=== PATIENT | female | born 1970 | race American Indian/Alaskan Native ===

== ENCOUNTER 2025-01-23 13:17 | Inpatient (IN) | payer MEDICAID ==
[~2025-01-23] VITALS: Ht 165.1 cm; Wt 70.0 kg
--- NOTE | 2025-01-23 13:36 | Physician Documentation ---
History of Present Illness ~ Chief Complaint: Abdominal Pain Stated Complaint: ABD PAIN Time Seen by MD: 13:27 HPI 55-year-old female who is brought here by ambulance from [facility]. She is currently there for IV ABX. She has a right PICC line in place for IV antibiotic therapy of Cefazolin two grams IV Q8H for right hip osteomyelitis with stop date of 02/10/25. Also on rifampin 300 mg po BID x 6 weeks. She is s/p right hip irrigation with excisional debridement of deep tissue and bone with wound culture 12/27/24. Hx chronic opioid dependence (fentanyl abuse) for which she is on scheduled methadone 10 mg po TID with prn oxycodone or hydomorphone prn. On Lovenox 40 mg daily for DVT prevention. She notes that she has been experiencing diarrhea, nausea, and abdominal pain. Per notes at [facility], she does also have hx of left corneal ulcer. KUB at [facility] shows suggestion of gallstones. Medication Reconciliation Allergies: Coded Allergies: No Known Allergies (Unverified , 01/23/25) Review of Systems ROS As stated above in the HPI, otherwise all systems are reviewed and negative. Physical Exam Vital Signs: Temperature: 98.3, Source: Oral, Heart Rate: 98, Respiratory Rate: 18, BP: 123/84, Pulse Oximetry: 95, Weight: 70.000 Oxygen Flow Rate: 0 Physical Exam General: Alert, no apparent distress. Older than stated age, chronically ill in appearance. HEENT: PERRL, EOMI, no injection, moist mucous membranes. Chronic opacification left cornea. Neck: Full range of motion. Respiratory: Lungs clear, no respiratory distress. Chest: No accessory muscle use. Cardiovascular: Regular rate and rhythm, no murmurs. Gastrointestinal: Soft, diffusely TTP, nondistended. Bowels sounds present. Extremities: Reduced/painful ROM right hip. Psychiatric: Normal mood and affect. Skin: Normal color, warm and dry. No edema, no ecchymosis. Progress Progress Note 1455: Consultation with EDMD Bonner who affirms plan to administer Zosyn for WBC count of 18.9 in this patient with osteomyelitis and possible cholecystitis with CT pending at this time. Infectious disease Dr. Harrison contacted to consult. 1608: Hospitalist agrees to evaluate patient for admission. Results/Orders Results/Orders Orders - SOMMER VIEIRA CARE COORDINATOR Urinalysis, Cult If Indicated (01/23/25 13:32) Monitor (01/23/25 13:32) Saline Lock (01/23/25 13:32) Nothing By Mouth (01/23/25 Dinner) Ct Abdomen Pelvis (01/23/25 14:55) C Diff Toxin (01/23/25 13:36) Cult Stool (Enteric Pathogens) (01/23/25 13:36) Culture Blood (01/23/25 13:37) Potassium Cl 40meq/1/2ns 520ml ([place] (01/23/25 14:40) Observation Status Start (01/23/25 14:38) Piperacillin/Tazo 4.5gm/100ml (Zosyn 4.5 (01/23/25 14:50) Page Hospitalist (01/23/25 16:04) Completed Orders - SOMMER VIEIRA CARE COORDINATOR Cbc/Diff (01/23/25 13:32) Lipase (01/23/25 13:32) Ondansetron Inj. (Zofran 4mg/2ml Vial) (01/23/25 13:35) Morphine 4mg/Ml Inj. (Morphine Inj.) (01/23/25 13:35) Normal Saline 1000ml (Sodium Chloride 10 (01/23/25 13:35) Ct Abdomen Pelvis (01/23/25 14:55) BMP (01/23/25 13:32) Liver Panel (01/23/25 13:32) Electrocardiogram (01/23/25 13:37) Procalcitonin (01/23/25 13:37) Lacticsepsis (01/23/25 13:37) C-Reactive Protein (01/23/25 13:37) Iohexol 300mg/Ml 100ml Inj. (Omnipaque-3 (01/23/25 14:33) Man Diff (01/23/25 13:58) Medications Received in ER Medications (Trade) Dose Ordered Sig/Axel Route PRN Reason Start Time Stop Time Status Last Admin Dose Admin (Zofran 4mg/2ml vial) 4 mg ONCE ONCE IV 01/23/25 13:35 01/23/25 13:36 DC 01/23/25 15:11 4 MG (morphine inj.) 4 mg ONCE ONCE IV 01/23/25 13:35 01/23/25 13:36 DC 01/23/25 13:45 4 MG (sodium chloride 1000ml IV soln) 1,000 ml ONCE ONCE IVB 01/23/25 13:35 01/23/25 13:36 DC 01/23/25 13:46 1,000 ML Potassium Chloride 520 ml @ 130 mls/hr ONCE ONCE IV 01/23/25 14:40 01/23/25 18:39 01/23/25 15:11 130 MLS/HR Piperacillin/ Tazobactam/ Dextrose 100 ml @ 25 mls/hr NOW STAT IV 01/23/25 14:50 01/23/25 18:49 01/23/25 15:11 25 MLS/HR Vital Signs 01/23/25 01/23/25 01/23/25 01/23/25 13:20 13:35 13:39 14:45 Temp 98.3 Pulse 98 98 89 Resp 18 18 19 B/P (MAP) 123/84 116/77 (90) 135/79 (97) Pulse Ox 95 96 98 O2 Flow Rate 0 0 0 01/23/25 15:49 Pulse 94 Resp 18 B/P (MAP) 122/76 (91) Pulse Ox 97 O2 Flow Rate 0 Laboratory Tests Test 01/23/25 13:58 White Blood Count 18.9 H Red Blood Count 4.43 Hemoglobin 11.9 L Hematocrit 36.5 Mean Corpuscular Volume 82.3 Mean Corpuscular Hemoglobin 26.9 L Mean Corpuscular Hemoglobin Concent 32.6 L Red Cell Distribution Width 20.8 H Platelet Count 337 Mean Platelet Volume 7.4 Neutrophils (%) (Auto) 83.7 H Lymphocytes (%) (Auto) 6.2 L Monocytes (%) (Auto) 9.5 Eosinophils (%) (Auto) 0.4 Basophils (%) (Auto) 0.2 Neutrophils # (Auto) 15.8 H Lymphocytes # (Auto) 1.2 Monocytes # (Auto) 1.8 H Eosinophils # (Auto) 0.1 Basophils # (Auto) 0.0 CBC Comment Differential Total Cells Counted 100 Neutrophils % (Manual) 72.0 Band Neutrophils % 13.0 H Lymphocytes % (Manual) 6.0 L Monocytes % (Manual) 9.0 Toxic Granulation 1+ Toxic Vacuolation Few Platelet Estimate Normal Red Blood Cell Morphology Perf Basophilic Stippling Anisocytosis 3+ Sodium Level 133 L Potassium Level 2.9 *L Chloride Level 99 Carbon Dioxide Level 22.0 L Anion Gap 12 Blood Urea Nitrogen 10 Creatinine 0.73 Estimated GFR/1.73 m2 82 BUN/Creatinine Ratio 13.7 Glucose Level 128 H Lactic Acid Level 0.9 Calcium Level 8.7 Total Bilirubin 0.3 Direct Bilirubin 0.2 Aspartate Amino Transf (AST/SGOT) 19 Alanine Aminotransferase (ALT/SGPT) 8 L Alkaline Phosphatase 116 C-Reactive Protein 8.97 H Total Protein 7.9 Albumin 2.8 L Globulin 5.1 H Albumin/Globulin Ratio 0.5 L Lipase 9 L Procalcitonin 0.09 Chemistry Comments EKG/XRAY/CT/US/VASC/MRI EKG : Additional Comment 1348: EKG interpreted to shows sinus rhythm rate of [address] segment elevation. No ectopy. QTC 435 ms. Medical Decision Making Additional Comments 55-year-old female with a complex medical history who is currently residing at [facility] as she is receiving intravenous antibiotics for right hip osteomyelitis. She presented today to the emergency department due to concerns for abdominal pain, present x3 days. Labs were remarkable for white blood cell count of 18.9 with 13 bands, mild hyponatremia with a sodium of 133, hypokalemia with a potassium of 2.9, markedly elevated CRP at 8.99. Her lactic acid and procalcitonin were unremarkable. The patient was found to have pancolitis per CT scan of the abdomen. She was medicated in the emergency department for pain and also getting a L of normal saline as a bolus and a dose as Zosyn. She is appropriate for admission due to her leukocytosis with bandemia, hypokalemia, and abdominal pain with known carrillo-colitis. C Diff was ordered immediately upon presentation but at time of presentation to hospitalist to [facility] for admission, patient had not yet produced diarrhea stool. Departure Time of Disposition: 16:19 Disposition: 09 ADMITTED INPATIENT Admitted to Inpatient Unit: yes, to hospitalist Impression: Primary Impression: Pancolitis Additional Impressions: Leukocytosis Bandemia Referrals: NO PRIMARY CARE PROVIDER (PCP) Signature Scribe Signature: x Attestation: The note accurately reflects work and decisions made by me.Sommer Graham NP 01/23/25 15:09 SOMMER VIEIRA NP Jan 23, 2025 13:36
[2025-01-23] MEDS: morphine 4 MG/ML inj SYRINge IV ONE (13:45)
[2025-01-23] MEDS: normal saline 1000ML IV soln IVB ONE (13:46)
--- NOTE | 2025-01-23 13:49 | ELECTROCARDIOGRAPH REPORT ---
[facility] Test Date: 2025-01-23 Test Time: 13:48:33 Pat Name: KENDY CARTER Department: [facility] Patient ID: [facility]-[id number] Room: Gender: F Personal Development Coach: : 1970 Requested By: SOMMER VIEIRA Order Number: [id number] Reading MD: Measurements Intervals Bradley Rate: 90 P: 52 OR: 157 QRS: 54 QRSD: 94 T: -6 QT: 355 QTc: 435 Interpretive Statements Sinus rhythm Probable left atrial enlargement Borderline T abnormalities, diffuse leads Please click the below link to view image of tracing.
[2025-01-23 14:15] LABS: MEAN PLATELET VOLUME 7.4 FL (7.4-10.4); RED CELL DISTRIBUTION WIDTH 20.8 % (11.5-14.5)
[2025-01-23 14:30] LABS: CREATININE 0.73 MG/DL (0.40-0.90); TOTAL CARBON DIOXIDE 22.0 MMOL/L (24-32); eCRCL 77 ML/MIN; eGFR 82 ML/MIN
[2025-01-23] MEDS ORDERED: iohexol 300mg/ml 100ml inj. ONE (14:33)
[2025-01-23 15:10] LABS: BANDS% (MANUAL) 13.0 % (0-10); LYMPHOCYTES % (MANUAL) 6.0 % (21-51); MONOCYTES % (MANUAL) 9.0 % (2-12); NEUTROPHILS % (MANUAL) 72.0 % (42-75); PLATELET ESTIMATE NORMAL
[2025-01-23] MEDS: potassium Cl 40MEQ/1/2NS 520ml 520 ML IV ONE (15:11)
[2025-01-23] MEDS: ondansetron/PF 4mg/2ml inj IV ONE (15:11)
[2025-01-23] MEDS: piperacillin/tazo 4.5gm/100ml 100 ML IV STA (15:11)
--- NOTE | 2025-01-23 15:55 | RADIOLOGY REPORT ---
Exam: CT CT ABDOMEN PELVIS W/ IV CONTRAST History: ABD PAIN Comparison Study: None TECHNIQUE: Multidetector CT of the abdomen and pelvis with IV contrast. Axial, coronal and sagittal m ultiplanar reformats were obtained from the axial data set by the technologist. Radiation Dose Information: CT Dose: CTDI volume is 16.96 mGy. Dose-length product is 866.71 mGy*cm FINDINGS: Bibasilar atelectasis. Partially visualized heart is unremarkable. Mild hepatomegaly. 1 cm nonspecific hypodense lesion within the left hepatic lobe adjacent to the fa lciform ligament. Minimal intrahepatic biliary ductal dilatation. Otherwise, liver, spleen, pancre as and adrenal glands unremarkable. Cholelithiasis within [id number] distended gallbladder. No CT evidence of acute cholecystitis. Kidneys, ureters and urinary bladder unremarkable. Status post hysterectomy. Calcifications are noted of the vagina. Phleboliths are noted within the pelvis. Mild wall thickening of the distal esophagus. Limited evaluation of the stomach due to decompressed s meyer. Small bowel loops unremarkable. Appendix is partially visualized with the visualized appendix unremarkable. Without complete visualization of the appendix, can not exclude acute appendicitis. The re is pancolonic wall thickening with minimal adjacent fat stranding. Small amount of liquid stool wi thin the colon. No evidence of intraperitoneal free air or free fluid. No evidence of aortic aneurysm or dissection. No significant atherosclerotic calcification of the aor ta and bilateral iliacs. Shotty mesenteric lymph nodes. Osseous destruction of right hip with erosive changes and sclerosis of the acetabulum and femoral hea d. Superior displacement of the right femur. There is associated heterogeneous soft tissue density w ith bony fragments /calcifications and fluid collection. Largest right lateral hip pocket of fluid c ollection measuring up to 5 x 3.4 x 6.4 cm. Heterogeneous lucent area within the right ischial bone. Right posterolateral lower thoracic wall lipoma measuring up to 4.9 x 2.3 x 4.2 cm IMPRESSION: Pancolitis. Right hip osseous destruction with associated ill-defined soft tissue density Complex fluid collectio n as detailed above. Heterogeneous lytic lesion within the Right ischial bone. Chronic osteomyelitis involving the ischial bone is within the differential. Hepatomegaly. Nonspecific 1 cm hypodense lesion within the left hepatic lobe adjacent to the falcifor m ligament. Mild distal esophageal wall thickening. Correlate for esophagitis. Cholelithiasis without evidence of acute cholecystitis. Additional findings as above.
[2025-01-23] MEDS ORDERED: magnesium sulf-water 4G/100mL 100 ML IV PRN (17:15)
[2025-01-23] MEDS ORDERED: potassium Cl 40MEQ/1/2NS 520ml 520 ML IV PRN (17:15)
[2025-01-23] MEDS ORDERED: mag hydrox/Alum hydrox/simeth 30ml oral suspension PO PRN (17:15)
[2025-01-23] MEDS ORDERED: magnesium Cl slow-release 64mg tablet PO PRN (17:15)
[2025-01-23] MEDS ORDERED: magnesium hydroxide 30ml (MOM) UD suspension PO PRN (17:15)
[2025-01-23] MEDS ORDERED: magnesium sulf-water 2g/50mL 50 ML IV PRN (17:15)
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
[2025-01-23 18:00] VITALS: BP 116/77; PULSE 107; RESP 17; TEMP 98.4; O2SAT 98
[2025-01-23] MEDS: oxyCODONE SR 10mg (sust. release) tab PO SCH (18:44)
[2025-01-23] MEDS: normal saline 1000ml 1,000 ML IV SCH (18:45)
[2025-01-23] MEDS: metroNIDAZOLE-Flagyl 500mg/NS 100 ML IV SCH (18:45)
[2025-01-23 20:00] VITALS: RESP 17; O2SAT 98
[2025-01-23] MEDS: docusate sod 100mg capsule PO SCH (20:00)
[2025-01-23] MEDS ORDERED: oxyCODONE SR 10mg (sust. release) tab PO PRN (20:00)
[2025-01-23] MEDS ORDERED: oxyCODONE SR 10mg (sust. release) tab PO SCH ×2 (20:00)
--- NOTE | 2025-01-23 20:23 | RADIOLOGY REPORT ---
CHEST RADIOGRAPH Indication: verify PICC placement Technique: Single frontal view of the chest was obtained COMPARISON: None FINDINGS: Lines and Tubes: Right PICC in satisfactory position Lungs: Congestion Pleura: No effusion. No pneumothorax. Cardiomediastinal contours: Unremarkable Bones: Unremarkable IMPRESSION: Right PICC in satisfactory position overlying the superior vena cava.
[2025-01-23] MEDS: K and/or MAG REPLACEMENT MC SCH (20:43)
[2025-01-23] MEDS: vancomycin 125 MG/5 ML UD oral SOLN.RECON 5mL oral syringe (FIRVANQ) PO SCH (20:45)
[2025-01-23 22:00] VITALS: BP 112/74; PULSE 96; RESP 14; TEMP 98.3; O2SAT 96
[2025-01-23] MEDS: potassium Cl 20 mEq SR tablet PO PRN (22:30)
[2025-01-23] MEDS: ondansetron/PF 4mg/2ml inj IV PRN (22:46)
[2025-01-24] MEDS: methadone 10mg tablet PO SCH (00:34)
[2025-01-24 05:39] LABS: MEAN PLATELET VOLUME 7.9 FL (7.4-10.4); RED CELL DISTRIBUTION WIDTH 21.3 % (11.5-14.5)
[2025-01-24 06:00] VITALS: BP 124/82; PULSE 89; RESP 18; TEMP 97.8; O2SAT 97
[2025-01-24 06:07] LABS: CREATININE 0.57 MG/DL (0.40-0.90); TOTAL CARBON DIOXIDE 20.6 MMOL/L (24-32); eCRCL 98 ML/MIN; eGFR > 90 ML/MIN
[2025-01-24] MEDS: lactobacillus rhamnosus 10,000 MMU CELLS/CAPSULE PO SCH (07:36)
[2025-01-24] MEDS: enoxaparin 40mg/0.4ml syringe SUBCUT SCH (07:43)
[2025-01-24 07:45] VITALS: RESP 16
[2025-01-24 09:01] LABS: C DIFFICILE TOXINS A&B POSITIVE (Neg)
[2025-01-24 09:02] LABS: C DIFF ANTIGEN POSITIVE (NEGATIVE); C DIFF SPECIMEN=DIARRHEA? ACCEPTABLE
[2025-01-24 10:00] VITALS: BP 127/85; PULSE 93; RESP 16; TEMP 98; O2SAT 96
--- NOTE | 2025-01-24 12:01 | PROGRESS NOTE- Residence ---
Progress Note - Resident Providers to CC Resident Creating Document: JOSETTE DUARTE RES CC: LAW ANDERSEN MD ~ Central Line/PICC Necessity: Irritate solution deliver Antibiotic Timeout Antibiotic Ordered?: Yes If Yes, Indications: CDI Subjective Patient is seen today morning. Still having diarrhea. And abdominal pain. Stool for C diff is positive Objective Vital Signs Date Time Temp Pulse Resp B/P (MAP) Pulse Ox O2 Delivery O2 Flow Rate FiO2 01/24/25 07:45 16 Room Air 01/24/25 06:00 97.8 89 124/82 (96) 97 01/23/25 22:00 0.0 Result Diagram: 01/24/2542301/24/25423 General: Adult female, AAO x4, not in apparent distress Face; scars present over for her forehead Head: Normocephalic with an atraumatic Eyes: Pupils- 3mm, reacting to light, conjunctiva- anicteric Nose and throat: No polyps, septum- normal, no mucosal ulcers Neck: Supple, no lymphadenopathy, no carotid bruit Respiratory: No use of accessory muscles of respiration, Bilateral normal vesiscular breath sounds heard. No wheeze, rhochi or creps Cardiac: S1-S2 heard, rythm regular, no gallop/murmur Abdomen: non distended, mild diffuse tenderness, no organomegaly, bowel sounds- heard Extremities: no clubbing, no pedal edema, peripheral pulses- 2+ Skin: warm and dry, no rash, no purpura Neuro: No focal deficit, gross cranial nerve exam- normal Assessment Assessment 55-year-old female with history of right hip prosthetic infections, s/p prosthesis removal in 2022, right hip osteomyelitis on IV antibiotics, fentanyl use disorder, who has been residing in rehab for the past three weeks came for evaluation of abdominal pain and diarrhea Plan Plan Clostridium Difficile Infection sepsis-poa -wbc remained at 18 -CT abdomen showed diffuse pancolitis with cholelithiasis without any cholecystitis -continue p.o. vancomycin 120 mg q.6, started on 01/23 for 2 weeks -contact isolation for C diff -NS @ 100 cc/hr Right hip osteomyelitis ct showed- Osseous destruction of right hip with erosive changes and sclerosis of the acetabulum and femoral head. Superior displacement of the right femur. There is associated heterogeneous soft tissue density with bony fragments /calcifications and fluid collection. Largest right lateral hip pocket of fluid collection measuring up to 5 x 3.4 x 6.4 cm. Heterogeneous lucent area within the right ischial bone. Right posterolateral lower thoracic wall lipoma measuring up to 4.9 x 2.3 x 4.2 cm -patient is on IV cefazolin 2 g q.8h and rifampin 300 mg b.i.d. which has to be continued till 02/09/2025 -hold cefazolin for now and continue rifampin -pain management with p.o. oxy SR 10 mg q.12 p.r.n. -Dr. Harrison ID was consulted in the ER, appreciate recs -physical therapy Fentanyl use disorder -currently on methadone 10 mg q.8h as per records from [facility], pharmacy will also confirm once and then start -SUN consulted for resources Hypokalemia Potassium 3.1 -suspect secondary to diarrhea -replacement per protocol Cholelithiasis -CT abdomen showed no evidence of cholecystitis -monitor for now Code Status: Full code Line/tube: PICC line DVT prophylaxis: Lovenox subQ Nutrition: Regular diet PT: Yes Prognosis: Guarded Disposition: Continue care in surgical floor Josette Duarte MD IM PGY-3 resident Date of Service: Jan 24, 2025 Billing Provider: LAW ANDERSEN MD,JOSETTE, RES Jan 24, 2025 12:01
[2025-01-24 18:00] VITALS: BP 133/82; PULSE 93; RESP 15; TEMP 98.6; O2SAT 98
[2025-01-24 22:00] VITALS: BP 133/86; PULSE 94; RESP 18; TEMP 96.8; O2SAT 98
[2025-01-24] MEDS ORDERED: OXYC-658 PO (23:05)
[2025-01-24] MEDS ORDERED: CEFA2PLA9 IV (23:05)
[2025-01-24] MEDS ORDERED: ACET-2119 PO (23:05)
[2025-01-24] MEDS ORDERED: ENOX40SY7 SUBCUT (23:05)
[2025-01-24] MEDS ORDERED: FERR325T28 PO (23:05)
[2025-01-24] MEDS ORDERED: VITC500T PO (23:05)
[2025-01-24] MEDS ORDERED: LORA-268 PO (23:05)
[2025-01-24] MEDS ORDERED: DOCU100E RC (23:05)
[2025-01-24] MEDS ORDERED: HYDR1LIQ3 IV ×2 (23:05)
[2025-01-24] MEDS ORDERED: CALC500T33 PO (23:05)
[2025-01-24] MEDS ORDERED: ONDA-243 PO (23:05)
[2025-01-24] MEDS ORDERED: POLY17PO26 PO (23:05)
[2025-01-24] MEDS ORDERED: MELA3CAP2 PO (23:05)
[2025-01-24] MEDS ORDERED: OXYC10TA47 PO (23:05)
[2025-01-24] MEDS ORDERED: METH-603 PO (23:05)
[2025-01-24] MEDS ORDERED: ALB0.5UD NEB (23:05)
[2025-01-24] MEDS ORDERED: PANT40SU2 PO (23:05)
[2025-01-24] MEDS ORDERED: LACT1CAP65 PO (23:05)
[2025-01-24] MEDS ORDERED: NICO-687 TOP (23:05)
[2025-01-25] MEDS ORDERED: oxyCODONE IR 5mg (immed. release) tablet PO PRN (01:15)
[2025-01-25] MEDS ORDERED: calcium carbonate 500mg chew tablet PO PRN (01:20)
[2025-01-25] MEDS ORDERED: albuterol 2.5 MG/3 ML nebule NEB PRN (01:20)
[2025-01-25 06:08] LABS: CREATININE 0.54 MG/DL (0.40-0.90); TOTAL CARBON DIOXIDE 19.2 MMOL/L (24-32); eCRCL 103 ML/MIN; eGFR > 90 ML/MIN
[2025-01-25 06:10] LABS: MEAN PLATELET VOLUME 7.5 FL (7.4-10.4); RED CELL DISTRIBUTION WIDTH 21.3 % (11.5-14.5)
[2025-01-25 06:30] LABS: EOSINOPHILS % (MANUAL) 1.0 % (0-6); LYMPHOCYTES % (MANUAL) 4.0 % (21-51); MONOCYTES % (MANUAL) 4.0 % (2-12); NEUTROPHILS % (MANUAL) 91.0 % (42-75); PLATELET ESTIMATE NORMAL
[2025-01-25 06:47] VITALS: BP 116/70; PULSE 86; RESP 20; TEMP 96; O2SAT 99
[2025-01-25] MEDS: HYDROmorphone inj. 0.5 MG/0.5 ML DISP.SYRIN IV SCH (08:00)
[2025-01-25] MEDS ORDERED: methadone 10mg tablet PO SCH (08:00)
[2025-01-25] MEDS: nicotine 21mg patch - 24 hr TD SCH (08:00)
[2025-01-25] MEDS: pantoprazole 40mg Tablet.DR PO SCH (08:33)
[2025-01-25] MEDS: potassium Cl 20 mEq SR tablet PO PRN (08:33)
[2025-01-25 11:13] VITALS: BP 120/71; PULSE 91; RESP 18; TEMP 98.1; O2SAT 98
[2025-01-25] MEDS: oxyCODONE IR 5mg (immed. release) tablet PO PRN (15:22)
--- NOTE | 2025-01-25 17:24 | PROGRESS NOTE- Residence ---
Progress Note - Resident Providers to CC Resident Creating Document: JERAD JONES RES ~ Antibiotic Timeout Antibiotic Ordered?: Yes Subjective Patient is seen today morning. She had 1-2 episodes of diarrhea. C diff positive. She had mild abdominal pain on palpation. Objective Vital Signs Date Time Temp Pulse Resp B/P (MAP) Pulse Ox O2 Delivery O2 Flow Rate FiO2 01/25/25 15:22 16 01/25/25 11:13 98.1 91 120/71 (87) 98 Room Air 01/25/25 08:20 0.0 General: Adult female, AAO x4, not in apparent distress Face; scars present over for her forehead Head: Normocephalic with an atraumatic Eyes: Pupils- 3mm, reacting to light, conjunctiva- anicteric Nose and throat: No polyps, septum- normal, no mucosal ulcers Neck: Supple, no lymphadenopathy, no carotid bruit Respiratory: No use of accessory muscles of respiration, Bilateral normal vesiscular breath sounds heard. No wheeze, rhochi or creps Cardiac: S1-S2 heard, rythm regular, no gallop/murmur Abdomen: non distended, mild diffuse tenderness, no organomegaly, bowel sounds- heard Extremities: no clubbing, no pedal edema, peripheral pulses- 2+ Skin: warm and dry, no rash, no purpura Neuro: No focal deficit, gross cranial nerve exam- normal Result Diagram: 01/25/25 0600 01/25/25 0445 Assessment Assessment 55-year-old female with history of right hip prosthetic infections, s/p prosthesis removal in 2022, right hip osteomyelitis on IV antibiotics, fentanyl use disorder, who has been residing in rehab for the past three weeks came for evaluation of abdominal pain and diarrhea Plan Plan Clostridium Difficile Infection sepsis-poa -wbc remained at 18 -CT abdomen showed diffuse pancolitis with cholelithiasis without any cholecystitis -continue p.o. vancomycin 120 mg q.6, started on 01/23 for 2 weeks -contact isolation for C diff -NS @ 100 cc/hr Culturel has been ordered for the gut benefit of the patient Right hip osteomyelitis ct showed- Osseous destruction of right hip with erosive changes and sclerosis of the acetabulum and femoral head. Superior displacement of the right femur. There is associated heterogeneous soft tissue density with bony fragments /calcifications and fluid collection. Largest right lateral hip pocket of fluid collection measuring up to 5 x 3.4 x 6.4 cm. Heterogeneous lucent area within the right ischial bone. Right posterolateral lower thoracic wall lipoma measuring up to 4.9 x 2.3 x 4.2 cm DC rifampin today -pain management with p.o. oxy SR 10 mg q.12 p.r.n. -Dr. Harrison ID consulted. ID will evaluate the patient tomorrow Fentanyl use disorder -currently on methadone 10 mg q.8h as per records from [facility], pharmacy will also confirm once and then start -SUN consulted for resources Hypokalemia Potassium 3.3 -suspect secondary to diarrhea -replacement per protocol to be continued Cholelithiasis -CT abdomen showed no evidence of cholecystitis -monitor for now Code Status: Full code Line/tube: PICC line DVT prophylaxis: Lovenox subQ Nutrition: Regular diet PT: Yes Prognosis: Guarded Disposition: Continue care in surgical floor Jerad Jones MD IM PGY-1 resident Date of Service: Jan 25, 2025 Billing Provider: LAW ANDERSEN MD, JAHNAVI, RES Jan 25, 2025 17:24
[2025-01-25 18:00] VITALS: BP 119/74; PULSE 95; RESP 18; TEMP 98.1; O2SAT 96
[2025-01-25] MEDS: lactobacillus rhamnosus 10,000 MMU CELLS/CAPSULE PO SCH (19:51)
[2025-01-25 20:00] VITALS: RESP 18; O2SAT 96
[2025-01-25 22:00] VITALS: BP 117/70; PULSE 77; RESP 13; TEMP 97.8; O2SAT 97
[2025-01-25] MEDS: ondansetron/PF 4mg/2ml inj IV PRN (22:10)
[2025-01-26 05:33] LABS: CREATININE 0.54 MG/DL (0.40-0.90); TOTAL CARBON DIOXIDE 15.8 MMOL/L (24-32); eCRCL 103 ML/MIN; eGFR > 90 ML/MIN
[2025-01-26 06:22] VITALS: BP 120/70; PULSE 83; RESP 16; TEMP 98.3; O2SAT 97
[2025-01-26 07:30] LABS: MEAN PLATELET VOLUME 7.5 FL (7.4-10.4); RED CELL DISTRIBUTION WIDTH 21.8 % (11.5-14.5)
[2025-01-26] MEDS: dextrose 50%-water 50ml dispensing syringe IV ONE (08:24)
[2025-01-26 08:39] LABS: BANDS% (MANUAL) 4.0 % (0-10); LYMPHOCYTES % (MANUAL) 6.0 % (21-51); MONOCYTES % (MANUAL) 4.0 % (2-12); NEUTROPHILS % (MANUAL) 86.0 % (42-75); PLATELET ESTIMATE NORMAL
[2025-01-26 11:01] VITALS: BP 102/62; PULSE 83; RESP 16; TEMP 97.4; O2SAT 96
--- NOTE | 2025-01-26 11:42 | CONSULTATION REPORT - RESIDENT ---
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 Patient came transferred from [facility] due to abdominal pain and diarrhea. Patient has a longstanding history of right hip osteomyelitis, she initially required a right hip replacement in 2003, then after hardware infection patient required debridements and hardware removal at [facility]/[place]. Most recently, patient was admitted to [facility] three weeks ago for a six week course of IV rifampin and cefazolin. She reports that since starting antibiotics she has been presenting intermittent watery diarrhea. Three days ago, she reported that the diarrhea increased in frequency, and it was accompanied by colicky abdominal pain, diffuse, constant, 8-9/10 in intensity. She denies hematochezia, melena or hematemesis. She also denies fevers or chills. On admission, testing for C diff was positive. P.o. vancomycin 125 mg q.6 was started, and Cefazolin was held. Rifampin was initially continued, then stopped yesterday. Today, patient reports to be feeling better with improved abdominal pain and decreased in frequency of diarrhea. She has remained afebrile. According to patient, plan for the hip is to get another hip replacement after the infection has resolved. Allergies: Coded Allergies: No Known Allergies (Unverified , 01/23/25) Home Medications Home Medications Active Reported Oxycodone Hcl 10 Mg Tablet 2 Tab PO Q4H PRN Oxycodone IR* (Oxycodone HCl) 5 Mg Tablet 10 Mg PO Q4H PRN Ondansetron Odt (Ondansetron HCl) 4 Mg Tab.rapdis 1 Tab PO Q6H PRN PRN Melatonin 3 Mg Capsule 1 Cap PO HS PRN Ativan (Lorazepam) 0.5 Mg Tablet 1 Tab PO Q12H PRN PRN Dilaudid (Hydromorphone HCl) 1 Mg/Ml Liquid 0.5 Mg IV BID Dilaudid (Hydromorphone HCl) 1 Mg/Ml Liquid 0.5 Mg IV Q6H PRN Docusol Kids (Docusate Sodium) 100 Mg/5 Ml Enema 283 Mg RC PRN PRN Tums (Calcium Carbonate) 500 Mg Tab.chew 2 Tab PO BID PRN Proventil Nebs* (Albuterol) 2.5 Mg/0.5 Ml Vial.neb 2.5 Mg NEB Q4H PRN Tylenol (Acetaminophen) 325 Mg Tablet 650 Mg PO Q4H PRN Cefazolin 2 G/100 ml-0.9% NaCl (Cefazolin Sodium in 0.9 % NaCl) 2 Gram/100 Ml Plast..bag 2 Gm IV Q8H Gavilax (Polyethylene Glycol 3350) 17 Gram Powd.pack 17 Gm PO DAILY Protonix (Pantoprazole Sodium) 40 Mg Suspdr.pkt 40 Mg PO DAILY Habitrol 21 MG Patch* (Nicotine) 1 Each Patch.td24 1 Patch TOP DAILY 28 Days Dolophine* (Methadone HCl) 10 Mg Tablet 1 Tab PO Q8H Probiotic (Lactobacillus Acidophilus) 10 Billion Cell Capsule 1 Each PO BID Ferrous Sulfate* (Ferrous Sulfate) 325 Mg Tablet 1 Tab PO DAILY Lovenox (Enoxaparin Sodium) 40 Mg/0.4 Ml Disp.syrin 0.4 Ml SUBCUT DAILY Vitamin C* (Ascorbic Acid) 500 Mg Tablet 1 Tab PO DAILY Past Medical History Past Medical History Chronic osteomyelitis of right hip 2/2 hardware infection Fentanyl use disorder Left eye blindness 2/2 corneal ulcer Cholelithiasis Past Surgical History Surgical History Comment Right hip replacement Right hip hardware removal Right hip debridement x3 Right knee replacement Past Social History Social History Comment Heavy smoker, has decreased to 2 cigarettes a day. Last cigarette 3 weeks ago Denies alcohol intake History of fentanyl abuse, on methadone Lives with her son Currently uses a wheelchair/crutches ROS ROS All systems were reviewed and found negative except for pertinent positives mentioned in HPI Exam Vitals: Vital Signs Date Time Temp Pulse Resp B/P (MAP) Pulse Ox O2 Delivery O2 Flow Rate FiO2 01/26/25 11:01 97.4 83 16 102/62 (75) 96 01/26/25 08:27 Room Air 0.0 General: General: awake, alert oriented to place, time, and person HEENT: No pallor present, no icterus, moist mucous membranes Neck: No masses and tenderness Resp: Unlabored. Lungs clear to auscultation bilaterally. Chest: Normal expansion Cardiovascular: Regular Rate and rhythm, normal S1 and S2 without murmur, rub or gallop Abdomen: Soft and diffusely tender to palpation, no organomegaly, no guarding and rigidity, bowel sounds present Neuro: No focal weakness in the upper and lower limb muscles, power of the muscles 5/5 bilateral upper and lower extremities, normal reflexes bilaterally. Cranial nerves intact Extremities: She has a healing wound in the right hip, sterile strips present. No drainage, no erythema or edema. No cyanosis or clubbing Skin: Warm and Dry. No lesions Psych: Normal affect. Cooperative with the care Diagnostic Data Last Recorded Lab Results: 01/26/25 0649 01/26/25 0500 Additional Plan Infectious disease consultation note: C-diff colitis Chronic MSSA osteomyelitis of right hip 2/2 hardware infection S/p right hip hardware removal at [facility] Patient is clinically better with decreased diarrhea and abdominal pain White count is still significantly elevated Blood cultures from 01/23/[address] abdomen and pelvis show: Right hip osseous destruction with associated ill- defined soft tissue density Complex fluid collection as detailed above. Heterogeneous lytic lesion within the Right ischial bone. Chronic osteomyelitis involving the ischial bone is within the differential. Agree with stopping rifampin and cefazolin Will continue p.o. vancomycin 125 mg q.6 Will start IV vancomycin to cover the right hip with stop date of 02/09 as initially planned Continue monitoring CBC Patient is to follow up at [facility] once hip infection has cleared. Although, considering the amount of bone destruction in the area this may not be possible History of fentanyl abuse Patient is currently on methadone Since was on rifampin, which decreases methadone concentration, consider decreasing methadone dose now that the patient is off rifampin. Above plan discussed in detail with Dr. Galarza Other comorbidities include: Hypoglycemia Cholelithiasis Hyponatremia, resolved Hypokalemia, resolved Management per hospitalist team Disposition: Continue care in surgical floor. Continue p.o. vancomycin. Start IV vancomycin Santosh Gomes MD Internal Medicine Resident PGY-2 Date of Service: Jan 26, 2025 Billing Provider: STEPHANIE GALARZA MD, LEONARDO LUIS Jan 26, 2025 11:42 STEPHANIE GALARZA MD Jan 26, 2025 23:39
[2025-01-26] MEDS: VANCOMYCIN 1.75GM/WATER FOR INJ (PEG) 350 ML IVPB IV ONE (13:07)
[2025-01-26 13:10] VITALS: PULSE 83; RESP 16; O2SAT 96
[2025-01-26] MEDS: HYDROmorphone inj. 0.5 MG/0.5 ML DISP.SYRIN IV PRN (15:12)
[2025-01-26 18:00] VITALS: BP 123/81; PULSE 76; RESP 16; TEMP 97.5; O2SAT 98
--- NOTE | 2025-01-26 18:49 | PROGRESS NOTE- Residence ---
Progress Note - Resident Providers to CC Resident Creating Document: JOSETTE DUARTE RES CC: LAW ANDERSEN MD ~ Central Line/PICC still needed: N\A Antibiotic Timeout Antibiotic Ordered?: Yes If Yes, Indications: cdi Subjective Patient is seen today morning. feeling slightly better, still having loose bm although frequency is down to 2-3 for the past 24 hrs Hab bg of 55 this morning and ivf changed to d5ns from ns Objective Vital Signs Date Time Temp Pulse Resp B/P (MAP) Pulse Ox O2 Delivery O2 Flow Rate FiO2 01/26/25 16:43 16 01/26/25 13:10 83 96 Room Air* 0 21 01/26/25 11:01 97.4 102/62 (75) Result Diagram: 01/26/25 0649 01/26/25 0500 General: Adult female, AAO x4, not in apparent distress Face; scars present over for her forehead Head: Normocephalic with an atraumatic Eyes: Pupils- 3mm, reacting to light, conjunctiva- anicteric Nose and throat: No polyps, septum- normal, no mucosal ulcers Neck: Supple, no lymphadenopathy, no carotid bruit Respiratory: No use of accessory muscles of respiration, Bilateral normal vesiscular breath sounds heard. No wheeze, rhochi or creps Cardiac: S1-S2 heard, rythm regular, no gallop/murmur Abdomen: non distended, mild diffuse tenderness, no organomegaly, bowel sounds- heard Extremities: no clubbing, no pedal edema, peripheral pulses- 2+ Skin: warm and dry, no rash, no purpura Neuro: No focal deficit, gross cranial nerve exam- normal Assessment Assessment 55-year-old female with history of right hip prosthetic infections, s/p prosthesis removal in 2022, right hip osteomyelitis on IV antibiotics, fentanyl use disorder, who has been residing in rehab for the past three weeks came for evaluation of abdominal pain and diarrhea Plan Plan Clostridium Difficile Infection sepsis-poa -wbc 25>>25>>18 -CT abdomen showed diffuse pancolitis with cholelithiasis without any cholecystitis -continue p.o. vancomycin 120 mg q.6, started on 01/23 for 2 weeks -contact isolation for C diff -D5NS @ 100 cc/hr Right hip osteomyelitis ct showed- Osseous destruction of right hip with erosive changes and sclerosis of the acetabulum and femoral head. Superior displacement of the right femur. There is associated heterogeneous soft tissue density with bony fragments /calcifications and fluid collection. Largest right lateral hip pocket of fluid collection measuring up to 5 x 3.4 x 6.4 cm. Heterogeneous lucent area within the right ischial bone. Right posterolateral lower thoracic wall lipoma measuring up to 4.9 x 2.3 x 4.2 cm -patient is on IV cefazolin 2 g q.8h and rifampin 300 mg b.i.d. which has to be continued till 02/09/2025 -hold cefazolin and rifampin -ID recs- started on IV vanco pharmacy to dose from today till 02/09 -pain management with p.o. oxy SR 10 mg q.12 p.r.n. -physical therapy Fentanyl use disorder -continue methadone 10 mg q.8h -noted ID input regarding reducing the dose of methadone as rifampin is dced, -will monitor for sedation and resp depression Hypokalemia- resolved NAGMA -delta ratio-4 -suspect 2/2 diarhea -continue IVF as mentioned above and repeat bmp @ 7 pm Cholelithiasis -CT abdomen showed no evidence of cholecystitis -monitor for now Code Status: Full code Line/tube: PICC line DVT prophylaxis: Lovenox subQ Nutrition: Regular diet PT: Yes Prognosis: Guarded Disposition: Continue care in surgical floor, dc to [facility] rehab tmrw Josette Duarte MD IM PGY-3 resident Date of Service: Jan 26, 2025 Billing Provider: LAW ANDERSEN MD, HARIVARSHA, RES Jan 26, 2025 18:49
[2025-01-26 19:37] LABS: CREATININE 0.40 MG/DL (0.40-0.90); TOTAL CARBON DIOXIDE 19.7 MMOL/L (24-32); eCRCL 140 ML/MIN; eGFR > 90 ML/MIN
[2025-01-26] MEDS: metoclopramide 5 mg/ml inj IV PRN (19:42)
[2025-01-26 20:00] VITALS: RESP 16; O2SAT 96
[2025-01-26] MEDS ORDERED: potassium Cl 40MEQ/1/2NS 520ml 520 ML IV PRN (20:05)
[2025-01-26] MEDS ORDERED: potassium Cl 20 mEq SR tablet PO PRN (20:05)
[2025-01-26] MEDS: potassium Cl 20 mEq SR tablet PO PRN (21:26)
[2025-01-26 22:00] VITALS: BP 124/74; PULSE 78; RESP 18; TEMP 98.5; O2SAT 97
[2025-01-27] MEDS: VANCOmycin 1250MG/NS 250ml Bag 250 ML IV SCH (02:02)
[2025-01-27 04:59] LABS: MEAN PLATELET VOLUME 7.5 FL (7.4-10.4); RED CELL DISTRIBUTION WIDTH 21.5 % (11.5-14.5)
[2025-01-27 05:20] LABS: CREATININE 0.53 MG/DL (0.40-0.90); TOTAL CARBON DIOXIDE 20.0 MMOL/L (24-32); eCRCL 105 ML/MIN; eGFR > 90 ML/MIN
[2025-01-27] MEDS: K and/or MAG REPLACEMENT MC SCH (06:30)
[2025-01-27 06:31] VITALS: BP 123/82; PULSE 74; RESP 16; TEMP 98.4; O2SAT 99
[2025-01-27 11:00] VITALS: BP 126/81; PULSE 66; RESP 15; TEMP 98.7; O2SAT 97
[2025-01-27 11:24] VITALS: PULSE 72; RESP 20; O2SAT 99
--- NOTE | 2025-01-27 13:49 | DISCHARGE SUMMARY-Residence ---
Discharge Summary Providers to CC Resident Creating Document: JOSETTE DUARTE RES CC: LAW ANDERSEN MD ~ Discharge Summary Assessment 55-year-old female with history of right hip prosthetic infections, s/p prosthesis removal in 2022, right hip osteomyelitis on IV antibiotics, fentanyl use disorder, who has been residing in rehab for the past three weeks came for evaluation of abdominal pain and diarrhea Admission Diagnosis: acute diarrhea Hospital Course DATE OF ADMISSION: 01/23/2025 DATE OF DISCHARGE: 01/27/2025 Discharge Diagnosis\Comment: severe C diff infection Sepsis POA resolved Right hip osteomyelitis Fentanyl use disorder Hypokalemia Non-anion gap metabolic acidosis resolved Cholelithiasis Operations\Procedures: None Consultants: Dr. Galarza, infectious Disease Complications: None Condition on DC: Stable for transfer Discharge Summary: 55-year-old female with history of right hip prosthetic infections, s/p prosthesis removal in 2022, right hip osteomyelitis on IV antibiotics, fentanyl use disorder, who has been residing in rehab for the past three weeks came for evaluation of abdominal pain and diarrhea Hospital course -initially suspected C diff infection and empirically started on p.o. vancomycin and next day her C diff stool testing is positive. We initially up held antibiotic Ancef which she was taking for osteomyelitis and the continued rifampin. However with rifampin patient is having multiple bowel movements and stopped rifampin and ID consulted they started patient on IV vancomycin for o steomyelitis to be continued till 02/09. CT abdomen showed diffuse pancolitis with cholelithiasis without any cholecystitis. Patient received adequate hydration and she had hypokalemia which was corrected. WBC count came down to 16 from 25 We continued her medication of methadone for fentanyl use disorder. At the time of discharge the bowel movements were reduced in frequency. Abdominal pain was relieved. In the patient nausea is also improved. She is hemodynamically stable at the time of discharge and she is sent back to [facility]. Physical condition at the time of discharge is as follows General: Adult female, AAO x4, not in apparent distress Face; scars present over for her forehead Head: Normocephalic with an atraumatic Eyes: Pupils- 3mm, reacting to light, conjunctiva- anicteric Nose and throat: No polyps, septum- normal, no mucosal ulcers Neck: Supple, no lymphadenopathy, no carotid bruit Respiratory: No use of accessory muscles of respiration, Bilateral normal vesiscular breath sounds heard. No wheeze, rhochi or creps Cardiac: S1-S2 heard, rythm regular, no gallop/murmur Abdomen: non distended, mild diffuse tenderness, no organomegaly, bowel sounds- heard Extremities: no clubbing, no pedal edema, peripheral pulses- 2+ Skin: warm and dry, no rash, no purpura Neuro: No focal deficit, gross cranial nerve exam- normal Labs at discharge CBC-H and H , WBC 15.8, platelets 370 CMP-sodium 135, potassium 3.5, BUN two, creatinine 0.53, Bilirubin 1.6, AST/ALT/ALP 05/30/104, a1c- 4.4 CT abdomen/pelvis done on 01/23 Pancolitis. Right hip osseous destruction with associated ill-defined soft tissue density Complex fluid collection as detailed above. Heterogeneous lytic lesion within the Right ischial bone. Chronic osteomyelitis involving the ischial bone is within the differential. Hepatomegaly. Nonspecific 1 cm hypodense lesion within the left hepatic lobe adjacent to the falciform ligament. Mild distal esophageal wall thickening. Correlate for esophagitis. Cholelithiasis without evidence of acute cholecystitis. Additional findings as above. She is sent to [facility] rehab and she will continue p.o. vancomycin 125 mg q.6 and IV vancomycin pharmacy to dose till 02/09/2025 and she will be continuing her methadone 10 mg q.8h. She will be followed up by ID at the [facility] *Problems/Diagnosis: (1) Clostridioides difficile diarrhea Total Time Spent on D/C: > 30 Minutes Date of Service: Jan 27, 2025 Billing Provider: LAW ANDERSEN MD, HARIVARSHA, RES Jan 27, 2025 13:48
[2025-01-27 14:46] VITALS: RESP 16
--- NOTE | 2025-01-27 16:41 | PROGRESS NOTE- Residence ---
Progress Note - Resident Providers to CC Resident Creating Document: SANTOSH REED CC: STEPHANIE GALARZA MD ~ Antibiotic Timeout Antibiotic Ordered?: Yes Subjective Patient is seen at bedside today. She continues to feel better. Diarrhea frequency has decreased. Persists with mild abdominal pain Objective Vital Signs Date Time Temp Pulse Resp B/P (MAP) Pulse Ox O2 Delivery O2 Flow Rate FiO2 01/27/25 14:46 16 01/27/25 11:24 72 99 Room Air* 0 21 01/27/25 11:00 98.7 126/81 (96) Result Diagram: 01/27/2541401/27/25414 General: awake, alert oriented to place, time, and person HEENT: No pallor present, no icterus, moist mucous membranes Neck: No masses and tenderness Resp: Unlabored. Lungs clear to auscultation bilaterally. Chest: Normal expansion Cardiovascular: Regular Rate and rhythm, normal S1 and S2 without murmur, rub or gallop Abdomen: Soft and diffusely tender to palpation, no organomegaly, no guarding and rigidity, bowel sounds present Neuro: No focal weakness in the upper and lower limb muscles, power of the muscles 5/5 bilateral upper and lower extremities, normal reflexes bilaterally. Cranial nerves intact Extremities: She has a healing wound in the right hip, sterile strips present. No drainage, no erythema or edema. No cyanosis or clubbing Skin: Warm and Dry. No lesions Psych: Normal affect. Cooperative with the care Plan Plan Infectious disease progress note: C-diff colitis Chronic MSSA osteomyelitis of right hip 2/2 hardware infection S/p right hip hardware removal at [facility] Patient is clinically better with decreased diarrhea and abdominal pain WBC improving Blood cultures from 01/23/[address] abdomen and pelvis: Right hip osseous destruction with associated ill-defined soft tissue density complex fluid collection. Heterogeneous lytic lesion within the Right ischial bone. Agree with stopping rifampin and cefazolin Will continue PO vancomycin 125 mg q.6 Continue IV vancomycin to cover the right hip with stop date of 02/09 as initially planned Continue monitoring CBC Patient is to follow up at [facility] once hip infection has cleared. Although, considering the amount of bone destruction in the area this may not be possible Ok to transfer to [facility] today History of fentanyl abuse Patient is currently on methadone Since was on rifampin, which decreases methadone concentration, consider decreasing methadone dose now that the patient is off rifampin. Above plan discussed in detail with Dr. Galarza Disposition: Continue care in surgical floor. Continue p.o. vancomycin. Continue IV Vancomycin until 02/09/25 Santosh Gomes MD Internal Medicine Resident PGY-2 Date of Service: Jan 27, 2025 Billing Provider: STEPHANIE GALARZA MD, LEONARDO LUIS Jan 27, 2025 16:41 STEPHANIE GALARZA MD Jan 27, 2025 22:34
[2025-01-28] MEDS ORDERED: VANCOMYCIN LEVEL IV ONE (01:30)
== END 2025-01-27 15:04 | DRG 720 ==
LOC: ER 13:18 → ED HOLD 16:14 → SUR 3N 17:45
PROVIDERS: ADMIT Family Medicine; ATTEND Family Medicine
PROC: BW211ZZ Computerized Tomography (CT Scan) of Abdomen and Pelvis using Low Osmolar Contrast (ICD-10-PCS; principal; 2025-01-23)
DX: A41.9 Sepsis, unspecified organism (principal); A04.72 Enterocolitis due to Clostridium difficile, not specified as recurrent; E87.1 Hypo-osmolality and hyponatremia; M86.8X8 Other osteomyelitis, other site; D72.825 Bandemia; E87.6 Hypokalemia; K80.20 Calculus of gallbladder without cholecystitis without obstruction
CPT/HCPCS: 36415; 71045; 74177; 80048; 80053; 80076; 82948; 83036; 83605; 83690; 83735; 84132; 84145; 85007; 85025; 86140; 87040; 87045; 87046; 87081; 87324; 87449; 93005; 94760; 96361; 96374; 96375; 99285; A4333; A6250; G0378; J1171; J1650; J2270; J2405; J2543; J2765; J3370; J3372; J3480; J3490; J7030; J7042; Q9967